=== PATIENT | male | born 1960 | race Caucasian/White ===

== ENCOUNTER 2017-05-17 13:24 | Emergency (ER) | payer OTHER ==
[~2017-05-17] VITALS: Ht 170.2 cm; Wt 67.0 kg
[2017-05-17 13:27] VITALS: Ht 170.2 cm; Wt 67.0 kg
--- NOTE | 2017-05-17 13:53 | ERD ---
ER Documentation Chief Complaint Date/Time DATE: 05/17/17 TIME: 13:49 Chief Complaint "spider bite" on left shoulder x 4 days HPI 56-year-old male presents emergency department for left upper arm abscess. Stated that he is not sure if he had a spider bite. He also stated that he noticed drainage last night. Denies any headache, dizziness, blurred vision, neck pain, shoulder pain, chest pain, shortness of breath, difficulty breathing, back pain, abdominal pain, nausea, vomiting, recent exposure to any illness, recent antibiotic use in the last 3 months, fever, chills. Allergies. No past medical history. No surgeries. Does not take any prescription medication at home. 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 Denies any IV drug use. Smokes 1 pack of cigarettes a day. Denies use of alcoholic beverages, use of illegal drugs. ROS All systems reviewed and are negative except as per history of present illness. Medications Home Meds Active Scripts Ibuprofen* (Motrin*) 800 Mg Tab, 800 MG PO Q8 Y for PAIN AND OR ELEVATED TEMP, # 30 TAB Prov:CUBA MOORE F 05/17/17 Clindamycin Hcl* (Clindamycin Hcl*) 300 Mg Capsule, 300 MG PO TID for 10 Days, CAP Prov:PASILABANYURIYAR F 05/17/17 Hydrocodone/Acetaminophen (Ethan 5-325 Tablet) 1 Each Tablet, 1 TAB PO Q6H Y for PAIN, #7 TAB Prov:PASILABANYURIYAR F 05/17/17 Allergies Allergies: Coded Allergies: No Known Allergy (Unverified , 05/17/17) Physical Exam Vitals Vital Signs Date Time Temp Pulse Resp B/P Pulse Ox O2 Delivery O2 Flow Rate FiO2 05/17/17 13:27 99.0 89 18 128/78 99 Physical Exam Const: [] Head: Atraumatic Eyes: Normal Conjunctiva ENT: Normal External Ears, Nose and Mouth. Neck: Full range of motion..~ No meningismus. Resp: Clear to auscultation bilaterally Cardio: Regular rate and rhythm, no murmurs Abd: Soft, non tender, non distended. Normal bowel sounds Skin: No petechiae or rashes. Swelling and redness with tenderness to left arm(middle of humerus) that is warm to touch that is measuring approximately 8 cm(width) and 11 cm in length. Flatulence noted. Left shoulder is unremarkable. Left elbow is unremarkable. Left wrist/hand are unremarkable. Neurovascular deficits. Right upper extremities unremarkable. Back: No midline or flank tenderness Ext: No cyanosis, or edema Neur: Awake and alert Psych: Normal Mood and Affect Results 24 hrs Current Medications Medications (Trade) Dose Ordered Sig/Zoraida Route PRN Reason Start Time Stop Time Status Last Admin Dose Admin Clindamycin Phosphate (Cleocin) 600 mg ONCE ONCE IM 05/17/17 14:00 05/17/17 14:01 DC 05/17/17 14:41 Lidocaine (Xylocaine 1% (Mdv) 20 ml) 20 ml ONCE ONCE SC 05/17/17 14:00 05/17/17 14:01 DC Acetaminophen/ Hydrocodone Bitart (Ethan ()) 1 tab ONCE ONCE PO 05/17/17 14:00 05/17/17 14:01 DC 05/17/17 14:27 Procedures/MDM 56-year-old male presents emergency department for left upper arm abscess. Stated that he is not sure if he had a spider bite. He also stated that he noticed drainage last night. Denies any headache, dizziness, blurred vision, neck pain, shoulder pain, chest pain, shortness of breath, difficulty breathing, back pain, abdominal pain, nausea, vomiting, recent exposure to any illness, recent antibiotic use in the last 3 months, fever, chills. Allergies. No past medical history. No surgeries. Does not take any prescription medication at home. 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 Denies any IV drug use. Smokes 1 pack of cigarettes a day. Denies use of alcoholic beverages, use of illegal drugs. Physical exam: Swelling and redness with tenderness to left arm(middle of humerus) that is warm to touch that is measuring approximately 8 cm(width) and 11 cm in length. Flatulence noted. Left shoulder is unremarkable. Left elbow is unremarkable. Left wrist/hand are unremarkable. Neurovascular deficits. Right upper extremities unremarkable. Case was discussed with supervising physician, Dr. Andrea Carcamo who also examined the patient and suggested to do incision and drainage. Disease process was explained to the patient. He verbalized understanding and agreed with the procedure, treatment, plan of care, follow-up care. Treatment: Ethan PO. Clindamycin IM. Procedure: Incision and drainage. Betadine prep. Lidocaine 1% subcu 3 cc. Incised using scalpel. Drained copious amount of mucopurulent liquid. Dressing applied. No active bleeding. Re-evaluation: Patient tolerated the procedure well. No neurovascular deficits prior to and after the incision and drainage. Patient denies IV drug use thrice. Prescription: Clindamycin. Ethan. Motrin. Follow-up with primary care physician in the next 24-48 hours. Come back in 2 days for a wound check. Come back here in the emergency department for any new symptoms or any worsening of symptoms. All questions and concerns are answered. Patient verbalized understanding and agreed with the plan of care. Hemodynamically stable on discharge. Departure Diagnosis: Primary Impression: Abscess Condition: Stable Additional Instructions: Follow-up with primary care physician in the next 24-48 hours. Come back in 2 days for a wound check. Come back here in the emergency department for any new symptoms or any worsening of symptoms. All questions and concerns are answered. Patient verbalized understanding and agreed with the plan of care. CUBA MOORE May 17, 2017 13:53
[2017-05-17] MEDS ORDERED: LIDOCAINE 1% (MDV) 20 ML INJ SC ONE (14:00)
[2017-05-17] MEDS ORDERED: CLINDAMYCIN 300 MG INJ IM ONE (14:00)
[2017-05-17] MEDS ORDERED: HYDROCODONE/APAP (10/325) TAB PO ONE (14:00)
[2017-05-17] MEDS ORDERED: HYDR-906 PO (14:47)
[2017-05-17] MEDS ORDERED: IBUP800T25 PO (14:48)
[2017-05-17] MEDS ORDERED: CLIN-73 PO (14:48)
== END 2017-05-17 15:15 | disposition home or self-care (01) ==
LOC: FTE 13:24
DX: L02.414 Cutaneous abscess of left upper limb (principal)
CPT/HCPCS: 10060; 96372; Z7502; Z7610

== ENCOUNTER 2017-08-16 19:07 | Emergency (ER) | END 2017-08-17 06:25 | disposition left against medical advice (07) ==